=== PATIENT | male | born 1985 | race Two or more races ===

== ENCOUNTER 2025-01-06 02:54 | Emergency (ER) | payer SELFPAY ==
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
[2025-01-06 02:59] VITALS: BP 134/92; PULSE 115; RESP 18; TEMP 36.8; O2SAT 96
== END 2025-01-06 03:10 ==
LOC: SERX 03:06
PROVIDERS: Emergency Provider Emergency Medicine
DX: Z02.89 Encounter for other administrative examinations (principal); Z04.1 Encounter for examination and observation following transport accident
CPT/HCPCS: 99281